=== PATIENT | female | born 1985 | race Caucasian/White ===

== ENCOUNTER 2020-08-19 15:34 | Emergency (ER) | payer OTHER ==
[~2020-08-19] VITALS: Ht 165.1 cm; Wt 81.7 kg
--- NOTE | 2020-08-21 12:48 | NUR ---
this rn received pts lab results for hiv test performed by [facility] [employer]. this rn faxed resluts over to pts noted pcp on chart, at this time with a positive "ok" that his office revieved the fax. this rn to hand off results to [facility] as well. lab results to go to medical records for processing.
== END 2020-08-19 18:08 | disposition home or self-care (01) ==
LOC: ED 15:34
DX: Z77.21 Contact with and (suspected) exposure to potentially hazardous body fluids (principal); Z88.8 Allergy status to other drugs, medicaments and biological substances
CPT/HCPCS: 99283

== ENCOUNTER 2024-05-11 17:37 | Emergency (ER) | payer OTHER ==
[~2024-05-11] VITALS: Ht 165.1 cm; Wt 78.2 kg
[2024-05-11] MEDS ORDERED: KETOROLAC TROMETHAMINE 15 MG/ML VIAL IV ONE (18:00)
[2024-05-11 18:22] LABS: BASOPHILS 0.6 % (0-2); EOSINOPHILS 0.9 % (0-6); HEMATOCRIT 36.5 % (35.0-50.0); HEMOGLOBIN 13.2 g/dL (12.0-18.0); LYMPHOCYTES 21.7 % (24-44); MCH 31.6 (27-36); MCHC 36.3 g/dl (30-36); MCV 87.3 fl (81-99); MONOCYTES 7.3 % (0-12); NEUTROPHILS 69.5 % (39-80); PLATELET COUNT 240 K/uL (140-440); RBC 4.19 M/ul (4.3-5.7); RDW 12.5 (10.5-15.0)
[2024-05-11 18:37] LABS: ALBUMIN 3.9 g/dL (3.4-5.0); ALBUMIN/GLOBULIN RATIO 1.05 (1.1-2.4); ANION GAP 10.9 (7-21); BILIRUBIN, TOTAL 0.4 mg/dL (0.2-1.0); BUN/CREATININE RATIO 31.34 (6.0-28.6); CALCIUM 9.5 mg/dL (8.5-10.1); CREATININE, SERUM 0.67 mg/dL (0.55-1.02); POTASSIUM 3.9 mmol/L (3.5-5.1); PROTEIN, TOTAL 7.6 g/dL (6.4-8.2)
[2024-05-11] MEDS ORDERED: HYDROCODON-ACE1 EAC8 PO ×2 (19:26→19:32)
[2024-05-11 19:30] VITALS: BP 145/69
== END 2024-05-11 19:34 | disposition home or self-care (01) ==
LOC: ED 17:37
PROVIDERS: Emergency Medicine
DX: M65.28 Calcific tendinitis, other site (principal); Z88.8 Allergy status to other drugs, medicaments and biological substances
CPT/HCPCS: 36415; 70491; 80053; 85025; 99284-25; J1885; Q9967